=== PATIENT | female | born 1940 | race Caucasian/White ===

== ENCOUNTER 2023-06-07 21:06 | Emergency (ER) | payer OTHER, BC ==
[2023-06-07 21:31] VITALS: BP 184/65; PULSE 67; RESP 17; TEMP 97.3; BMI 23.2
[2023-06-07] MEDS ORDERED: ACETAMINOPHEN 500 MG TABLET (FP) ONE (22:04)
[2023-06-07] MEDS: ACETAMINOPHEN 325 MG TABLET (FP) PO ONE (22:17)
[2023-06-08] MEDS ORDERED: DIPHTH,PERTUSS(ACELL),TET 0.5 ML DISP.SYRIN IM ONE ×2 (03:23→03:44)
[2023-06-08] MEDS: DIPHTH,PERTUSS(ACELL),TET 0.5 ML DISP.SYRIN IM ONE (03:29)
== END 2023-06-08 03:59 | disposition home or self-care (01) ==
LOC: JER 21:06
PROC: 3E0234Z Introduction of Serum, Toxoid and Vaccine into Muscle, Percutaneous Approach (ICD-10-PCS; principal; 2023-06-08)
DX: S01.111A Laceration without foreign body of right eyelid and periocular area, initial encounter (principal); S50.811A Abrasion of right forearm, initial encounter; V49.40XA Driver injured in collision with unspecified motor vehicles in traffic accident, initial encounter; Y92.410 Unspecified street and highway as the place of occurrence of the external cause; Z23 Encounter for immunization
CPT/HCPCS: 70450-TC; 70486-TC; 71046-TC-FY; 72125-TC; 72170-TC-FY; 90715; 99284-25